=== PATIENT | female | born 1970 | race Two or more races ===

== ENCOUNTER 2017-08-21 12:21 | Emergency (ER) | payer OTHER ==
[~2017-08-21] VITALS: Ht 165.1 cm; Wt 93.4 kg
[~2017-08-21 12:21] MED LIST: ACTIGALL300 MG PO; DOLOGEN CAPLET1 EACH PO; KETO10TA2 PO; MEDROL4 MG PO; ORPH100T PO; QUESTRAN PACKET4 GM PO; TESSALON PERLE100 MG PO; TUSSI PRES-B L120 M1 PO; ZANTAC300 MG PO; ZOFRAN4 MG PO
[2017-08-21] MEDS ORDERED: URSODIOL500 MG PO (13:06)
== END 2017-08-21 17:49 | disposition home or self-care (01) ==
LOC: ER 12:21
DX: M54.5 Low back pain (principal)

== ENCOUNTER 2017-08-24 14:40 | Emergency (ER) | payer OTHER ==
[~2017-08-24] VITALS: Ht 152.4 cm; Wt 95.3 kg
[~2017-08-24 14:40] MED LIST changes: +URSODIOL500 MG PO
== END 2017-08-24 20:38 | disposition home or self-care (01) ==
LOC: ER 14:40
DX: M54.32 Sciatica, left side (principal)

== ENCOUNTER 2017-09-20 20:08 | Emergency (ER) | payer OTHER ==
[~2017-09-20] VITALS: Ht 165.1 cm; Wt 92.5 kg
== END 2017-09-20 22:18 | disposition home or self-care (01) ==
LOC: ER 20:08
DX: S76.812A Strain of other specified muscles, fascia and tendons at thigh level, left thigh, initial encounter (principal); W18.39XA Other fall on same level, initial encounter; Y93.89 Activity, other specified; Y92.098 Other place in other non-institutional residence as the place of occurrence of the external cause; Y99.8 Other external cause status

== ENCOUNTER 2018-08-24 20:43 | Emergency (ER) | payer OTHER ==
[~2018-08-24] VITALS: Ht 165.1 cm; Wt 90.7 kg
== END 2018-08-24 23:18 | disposition home or self-care (01) ==
LOC: ER 20:43
DX: K29.70 Gastritis, unspecified, without bleeding (principal)

== ENCOUNTER 2019-10-20 12:48 | Emergency (ER) | payer OTHER ==
[~2019-10-20] VITALS: Ht 165.1 cm; Wt 101.2 kg
[2019-10-20] MEDS ORDERED: URSO FORTE500 MG (13:36)
[2019-10-20] MEDS ORDERED: MOTION SICKNESS25 M2 PO (15:15)
== END 2019-10-20 15:19 | disposition home or self-care (01) ==
LOC: ER 12:48
DX: H81.13 Benign paroxysmal vertigo, bilateral (principal)

== ENCOUNTER 2020-04-08 17:56 | Emergency (ER) | payer OTHER ==
[~2020-04-08] VITALS: Ht 165.1 cm; Wt 108.4 kg
[~2020-04-08 17:56] MED LIST changes: +MOTION SICKNESS25 M2 PO; +URSO FORTE500 MG
== END 2020-04-08 21:10 | disposition home or self-care (01) ==
LOC: ER 17:56
DX: I73.89 Other specified peripheral vascular diseases (principal); R60.0 Localized edema

== ENCOUNTER 2020-04-13 09:56 | Outpatient (CLI) | payer OTHER | END 2020-04-13 10:15 | disposition home or self-care (01) | LOC: NUCLEAR 09:56 | PROVIDERS: ATTEND General Practice | DX: I73.9 Peripheral vascular disease, unspecified (principal) ==

== ENCOUNTER 2020-04-15 11:02 | Outpatient (CLI) | payer OTHER | END 2020-04-15 14:44 | disposition home or self-care (01) | LOC: NUCLEAR 11:02 | PROVIDERS: ATTEND General Practice | DX: I87.2 Venous insufficiency (chronic) (peripheral) (principal); I73.9 Peripheral vascular disease, unspecified ==

== ENCOUNTER 2021-03-25 08:00 | Outpatient (CLI) | payer OTHER | END 2021-03-25 08:30 | disposition home or self-care (01) | LOC: PPH VACUNA 08:00 | PROVIDERS: ATTEND Emergency Medicine Pediatric Emergency Medicine | DX: Z23 Encounter for immunization (principal) ==

== ENCOUNTER 2021-03-29 05:32 | Inpatient (IN) | payer OTHER ==
[~2021-03-29] VITALS: Ht 165.1 cm; Wt 102.5 kg
[2021-03-30] MEDS ORDERED: OCALIVA5 MG (13:49)
[2021-03-30] MEDS ORDERED: INDAPAMIDE1.25 MG (13:49)
[2021-03-30] MEDS ORDERED: PANTOPRAZOLE SO40 MG (13:49)
== END 2021-04-04 18:19 | DRG 813 ==
LOC: ER 05:32 → ICU-2 11:13 → ICU 11:13 → MEDI 03-31 20:43 → ICU 03-31 21:46 → OB/GYN 03-31 21:59 → MEDI 03-31 23:05
PROVIDERS: ADMIT Internal Medicine; ATTEND Internal Medicine
PROC: 30233R1 Transfusion of Nonautologous Platelets into Peripheral Vein, Percutaneous Approach (ICD-10-PCS; principal; 2021-03-29)
PROC: 30233N1 Transfusion of Nonautologous Red Blood Cells into Peripheral Vein, Percutaneous Approach (ICD-10-PCS; 2021-03-29)
PROC: BW40ZZZ Ultrasonography of Abdomen (ICD-10-PCS; 2021-03-29)
PROC: 3E0F7SF Introduction of Other Gas into Respiratory Tract, Via Natural or Artificial Opening (ICD-10-PCS; 2021-03-29)
PROC: 0DJ08ZZ Inspection of Upper Intestinal Tract, Via Natural or Artificial Opening Endoscopic (ICD-10-PCS; 2021-03-30)
PROC: 4A12X4Z Monitoring of Cardiac Electrical Activity, External Approach (ICD-10-PCS; 2021-03-31)
DX: D69.6 Thrombocytopenia, unspecified (principal); K92.2 Gastrointestinal hemorrhage, unspecified; D62 Acute posthemorrhagic anemia; K76.6 Portal hypertension; D61.818 Other pancytopenia; K22.10 Ulcer of esophagus without bleeding; K92.1 Melena; I85.10 Secondary esophageal varices without bleeding; K74.3 Primary biliary cirrhosis; Z20.822 Contact with and (suspected) exposure to COVID-19; D72.818 Other decreased white blood cell count

== ENCOUNTER 2021-08-13 09:24 | Emergency (ER) | payer OTHER ==
[~2021-08-13] VITALS: Ht 165.1 cm; Wt 99.8 kg
[~2021-08-13 09:24] MED LIST changes: +INDAPAMIDE1.25 MG; +OCALIVA5 MG; +PANTOPRAZOLE SO40 MG
[2021-08-13] MEDS ORDERED: PROTONIX40 M1 PO (09:41)
== END 2021-08-13 18:56 | disposition home or self-care (01) ==
LOC: ER 09:24
DX: K92.1 Melena (principal); Z88.1 Allergy status to other antibiotic agents; K74.60 Unspecified cirrhosis of liver; K57.30 Diverticulosis of large intestine without perforation or abscess without bleeding; N20.0 Calculus of kidney

== ENCOUNTER 2021-09-11 06:05 | Inpatient (IN) | payer OTHER ==
[~2021-09-11] VITALS: Ht 165.1 cm; Wt 108.4 kg
[~2021-09-11 06:05] MED LIST changes: +PROTONIX40 M1 PO
--- NOTE | 2021-09-11 06:28 | NUR ---
PACIENTE ALERTA Y ORIENTADA X3. REFIERE VENIR POR DOLOR EPIGASTRICO, SANGRADO RECTAL (ESCRETA COLOR LONNY Y HEADLEY A LA VEZ) Y NAUSEAS DESDE LAS 4:30AM.
--- NOTE | 2021-09-11 06:34 | NUR ---
PACIENTE TIENE EDEMA EN AMBAS PIERNAS DESDE HACE CUATRO AVILES.
--- NOTE | 2021-09-11 07:26 | NUR ---
PTE EVALUADA POR EL DR THORNTON QUIEN [place]DE[place]. MS Alyssa WIN ORIENTA SOBRE EL [place] ORDENADO, LO CUAL REFIERE ENTENDER, REALIZA PRUEBAS DE LABORATORIO Y ADMINISTRA [facility] VIJAYA ORDEN MEDICA Y SIGUIENDO MEDIDAS ASEPTICAS. PENDIENTE A REALIZAR CT ABD-PELVICO.
--- NOTE | 2021-09-11 13:41 | NUR ---
CONTACTA A [facility] PARA NOTIFICAR REQUISION DE 4 UNIDADES DE PRBC. INDICA QUE PTE TIENE RECORD ANTERIOR LINDA NO TIENE LA INICIAL DEL DAMIAN NOMBRE POR LO QUE SE TIENE QUE REALIZAR SVEN CERTIFICACION DE IDENTIFICACION DE PTE. COLECTA TUBOS PILOTOS PARA 4 UNIDADES DE PRBC, 2 UNIDADES PARA TRANSFUNDIR Y 2 UNIDADES EN HOLD. SE LLENA DOCUMENTO DE REQUISION Y CERTIFICACION DE IDENTIFICACION DE PTE. 1430- SE LLEVAN TUBOS PILOTOS, DOCUMENTO DE REQUISION Y CERTIFICACION DE PTE AL LABORATORIO PARA SER RECOGIDOS POR [facility].
--- NOTE | 2021-09-11 14:44 | NUR ---
2:35PM SE NOTIFICA A LA LIC VELIA (PERSONAL DE [facility] [facility]) TUBOS PILOTOS PARA 4 U DE PRBC (2U HOLD Y 2 U PARA TRANSFUNDIR) SE ENCUENTRAN YA EN LABORATORIO JUNTO CON CERTIFICACION MEDICA Y COPIA DE IDENTIFICACION DE PTE PARA SER RECOGIDAS.
== END 2021-09-16 13:12 | disposition home or self-care (01) | DRG 812 ==
LOC: ER 06:05 → MEDJ 15:57
PROVIDERS: ADMIT Internal Medicine; ATTEND Internal Medicine
PROC: 3E0F7SF Introduction of Other Gas into Respiratory Tract, Via Natural or Artificial Opening (ICD-10-PCS; 2021-09-11)
PROC: BW3GYZZ Magnetic Resonance Imaging (MRI) of Pelvic Region using Other Contrast (ICD-10-PCS; 2021-09-11)
PROC: BW21ZZZ Computerized Tomography (CT Scan) of Abdomen and Pelvis (ICD-10-PCS; 2021-09-11)
PROC: 30233N1 Transfusion of Nonautologous Red Blood Cells into Peripheral Vein, Percutaneous Approach (ICD-10-PCS; 2021-09-12)
PROC: 4A12X4Z Monitoring of Cardiac Electrical Activity, External Approach (ICD-10-PCS; 2021-09-14)
PROC: 06L38CZ Occlusion of Esophageal Vein with Extraluminal Device, Via Natural or Artificial Opening Endoscopic (ICD-10-PCS; principal; 2021-09-15)
DX: D50.0 Iron deficiency anemia secondary to blood loss (chronic) (principal); K22.10 Ulcer of esophagus without bleeding; I85.10 Secondary esophageal varices without bleeding; K92.1 Melena; D61.818 Other pancytopenia; K31.89 Other diseases of stomach and duodenum; K74.3 Primary biliary cirrhosis; D69.59 Other secondary thrombocytopenia
CPT/HCPCS: 72198